=== PATIENT | female | born 1960 | race Caucasian/White ===

== ENCOUNTER 2018-04-19 12:27 | Observation (INO) ==
[2018-04-19 22:03] LABS: Creatine Kinase 46 U/L (26-192)
[2018-04-20 04:34] LABS: Creatine Kinase 42 U/L (26-192)
--- NOTE | 2018-04-20 09:59 | ECG ---
Date Performed: 04/20/2018 Time Performed: 03:26:28 PTAGE: 57 years EKG: Sinus rhythm NORMAL ECG PREVIOUS TRACING : 04/19/2018 21.33 DOCTOR: Matt Kat Interpretating Date/Time 04/20/2018 09:58:34
--- NOTE | 2018-04-20 10:08 | ECG ---
Date Performed: 04/19/2018 Time Performed: 21:33:54 PTAGE: 57 years EKG: Sinus rhythm NORMAL ECG NO PREVIOUS TRACING DOCTOR: Matt Kat Interpretating Date/Time 04/20/2018 10:06:33
--- NOTE | 2018-04-20 10:37 | P.HP ---
History of Present Illness Primary Care Physician: UNKNOWN Chief Complaint: Patient told to go to the ER because of atrial fibrillation History of Present Illness: 57-year-old female with known history of hypothyroidism, gastric reflux who presented to the hospital at the request of urgent care because of fast heart rate and atrial fibrillation. Patient indicates that over the weekend she started developing what she felt palpitations where she felt her heart beating really fast. This happening infrequently and would go away on its own. She indicates that on Thursday night she had a red bull and vodka drink and then on Thursday she started noticing palpating more than it was. Then on Thursday she states that it started pounding so hard that felt like he was going to beat out of her chest and she can feel it down in her left flank. Because of that she went to an urgent care and she had an EKG done which showed her heart rate in the 150s with a rhythm of atrial fibrillation. She was told to go to the emergency department by the urgent care center. Patient went to the ER in [place]. During that visit she was evaluated by ER physician and she was in normal sinus rhythm. Is recommended by the ER physician that the patient be observed for further evaluation and management. Patient denies any chest pain, shortness of breath, dyspnea, nausea, vomiting, diaphoresis, lightheadedness or dizziness. Patient has remained in sinus rhythm with rate controlled since being in placed in the hospital. Patient denies any new complaints and very eager to go home. - Diagnosis (1) New onset atrial fibrillation Review of Systems All other systems reviewed negative except as stated in HPI Cardiovascular: Reports rapid, pounding, or irregular heartbeat [facility] - History History Provided By: Patient - Medical History Medical History: Medical History (Last Reviewed 04/20/18 @ 10:39 by STELLA Mayo) Hypothyroidism Ulcer - Surgical History Surgical History: Surgical History (Last Reviewed 04/20/18 @ 10:39 by STELLA Mayo) History of endometrial ablation Hx of tonsillectomy - Family History Family History: Family History (Last Updated 04/20/18 @ 10:21 by STELLA Mayo) Father History of heart disease - Tobacco History Second Hand Smoke Exposure: No Smoking Status: Never smoker - Alcohol History How Often Do You Have a Drink Containing Alcohol: 2 to 3 times a week - Substance Use History Substance History: No History of Abuse Medications and Allergies Active Medications: Active Medications Ondansetron HCl (Zofran Inj) 4 mg IV.PUSH Q6H PRN PRN Reason: NAUSEA OR VOMITING Allergies Allergy/AdvReac Type Severity Reaction Status Date / Time Sulfa (Sulfonamide Allergy Severe Anaphylaxis Verified 04/19/18 12:41 Antibiotics) Home Medications Medication Instructions Recorded Confirmed Type cholecalciferol (vitamin D3) 4,000 unit PO DAILY 04/19/18 04/20/18 History [Vitamin D3] levothyroxine 125 mcg PO DAILY 04/19/18 04/20/18 History omeprazole 20 mg PO DAILY 04/19/18 04/20/18 History Exam Vital signs: Vital Signs 04/19/18 20:00 04/20/18 00:09 04/20/18 04:02 Temperature 97.9 F 97.5 F L 97.4 F L Pulse Rate 87 87 81 Respiratory Rate 18 18 18 Blood Pressure 128/84 116/67 119/74 Pulse Oximetry 96 96 04/20/18 08:00 04/20/18 09:13 Temperature 96.8 F L Pulse Rate 88 83 Respiratory Rate 16 Blood Pressure 125/80 Pulse Oximetry 95 Intake & Output 04/19/18 04/20/18 04/20/18 18:59 06:59 18:59 Intake Total 365 / 365 Balance 365 / 365 Weight 88 kg Intake: Oral 365 / 365 Other: # Voids 2 Narrative: GENERAL: Well-developed, well-nourished, in no acute distress. alert and orientated HEENT: Head is normocephalic without any lesions or masses noted. Facial features are symmetric. Eyes: Pupils equal round reactive to light. Extraocular muscles are intact. Conjunctivae were clear. Oropharyngeal: Pharynx without any erythema edema. Tongue is midline without deviation. Buccal mucosa is moist without any masses or lesions NECK: Supple without any masses. Trachea midline no deviation. No JVD, no bruits are appreciated CARDIAC: Regular rhythm, regular rate. S1/S2 are heard. No murmurs gallops or rubs. LUNGS: Clear to auscultation bilaterally. No wheeze, rhonchi or rales. No use of accessory muscles on inspiration or expiration. ABDOMEN: Soft, nontender. Nondistended. Bowel sounds heard in all 4 quadrants. No organomegaly or masses. Negative rebound, negative guarding EXTREMITIES: No edema, pulses are equal bilaterally. No cyanosis or clubbing NEUROLOGY: Mood and affect appear appropriate. Cranial nerves II through XII grossly intact. Muscle strength 5/5 in upper and lower extremities bilaterally. Deep tendon reflexes are 2+ in upper and lower extremities bilaterally. Results - Labs Labs: Laboratory Results - last 24 hr 04/19/18 04/20/18 21:35 04:00 Total Creatine Kinase 46 42 Troponin I Less than 0.02 L Less than 0.02 L Caprini VTE Risk Assessment Caprini VTE Risk Assessment: Moderate/High Risk (score >= 2) Caprini Risk Assessment Model: Point Value = 1 Point Value = 2 Point Value = 3 Point Value = 5 Age 41-60 Minor surgery BMI > 25 kg/m2 Swollen legs Varicose veins or History of unexplained or recurrent spontaneous Oral contraceptives or hormone replacement Sepsis (< 1 month) Serious lung disease, including pneumonia (< 1 month) Abnormal pulmonary function Acute myocardial infarction Congestive heart failure (< 1 month) History of inflammatory bowel disease Medical patient at bed rest Age 61-74 Arthroscopic surgery Major open surgery (> 45 min) Laparoscopic surgery (> 45 min) Malignancy Confined to bed (> 72 hours) Immobilizing plaster cast Central venous access Age >= 75 History of VTE Family history of VTE Factor V Leiden Prothrombin [id number] Lupus anticoagulant Anticardiolipin antibodies Elevated serum homocysteine Heparin-induced thrombocytopenia Other congenital or acquired thrombophilia Stroke (< 1 month) Elective arthroplasty Hip, pelvis, or leg fracture Acute spinal cord injury (< 1 month) Prophylaxis Regimen: Total Risk Factor Score Risk Level Prophylaxis Regimen 0-1 Low Early ambulation 2 Moderate Order ONE of the following: *Sequential Compression Device (SCD) *Heparin 5000 units SQ BID 3-4 Higher Order ONE of the following medications: *Heparin 5000 units SQ TID *Enoxaparin/Lovenox 40 mg SQ daily (WT < 150 kg, CrCl > 30 mL/min) *Enoxaparin/Lovenox 30 mg SQ daily (WT < 150 kg, CrCl > 10-29 mL/min) *Enoxaparin/Lovenox 30 mg SQ BID (WT < 150 kg, CrCl > 30 mL/min) AND/OR *Sequential Compression Device (SCD) 5 or more Highest Order ONE of the following medications: *Heparin 5000 units SQ TID (Preferred with Epidurals) *Enoxaparin/Lovenox 40 mg SQ daily (WT < 150 kg, CrCl > 30 mL/min) *Enoxaparin/Lovenox 30 mg SQ daily (WT < 150 kg, CrCl > 10-29 mL/min) *Enoxaparin/Lovenox 30 mg SQ BID (WT < 150 kg, CrCl > 30 mL/min) AND *Sequential Compression Device (SCD) Assessment and Plan - Assessment (1) New onset atrial fibrillation Code(s): I48.91 - Unspecified atrial fibrillation Status: Acute - Plan Paroxysmal atrial fibrillation, new onset -Heart rate is controlled and sinus rhythm at this time -Chads2 score is 0, start daily aspirin -Serial cardiac enzymes were performed which all remained negative -Serial EKGs were performed apparently the first EKG performed indicated a inverted T-wave in lead III, however remaining EKGs show normal T waves -Echocardiogram indicated normal ejection fraction 55-60%, trace of tricuspid valve regurg. Normal left ventricular size and function -TSH was normal 2.81 -Telemetry was reviewed and no signs of any recurrent atrial fibrillation during hospitalization -Consult cardiology for evaluation of new onset paroxysmal atrial fibrillation. He recommended aspirin for anticoagulation. Recommended follow-up with patternmaker hand. Patient was cleared for discharge Hypothyroidism -Continue replacement therapy -Obtaining TSH DVT prevention -Sequential compression devices Discharge Planning: Discharge home in stable condition once cleared by cardiology Activity: Ad [place]. Diet: Healthy heart diet Medication per medication reconciliation Follow-up with primary medical doctor in 1 week
[2018-04-20] MEDS ORDERED: Pantoprazole Sodium 20 MG DR Tablet PO SCH (11:15)
[2018-04-20] MEDS ORDERED: Levothyroxine 125 MCG Tablet PO SCH (11:15)
--- NOTE | 2018-04-20 22:30 | MB ---
cc: Manuel Flores MD DATE: 04/20/2018 HISTORY OF PRESENT ILLNESS: Karen is a very pleasant 57-year-old lady with no significant past medical history, developed palpitations after drinking vodka and Red Bull. Otherwise, denies any chest pain, fever, chills, cough, GI or bleeding, PND, orthopnea, super dizziness. She is reported to have had AFib with rates in the 150s. There is no documentation of this by EKG or rhythm strip, however, reportedly the EKG in the ER in [place] showed normal sinus rhythm. EKGs here at [facility] showed normal sinus rhythm. The patient is currently comfortable, in no acute distress. PAST MEDICAL HISTORY: Includes hypothyroidism and ulcer disease, endometrial ablation, tonsillectomy. SOCIAL HISTORY: Denies tobacco use. Does drink alcohol 2-3 times a week. CURRENT MEDICATIONS: Aspirin 325 daily, levothyroxine 125 mcg daily, pantoprazole 20 mg daily. ALLERGIES: SULFA. PHYSICAL EXAMINATION: VITAL SIGNS: Temperature 97.2, pulse 81, respiratory rate 20, blood pressure 129/96, blood pressures ranging between 123-132 systolic and 74-96 diastolic, sats are 97% on room air. GENERAL: She is alert and oriented x 3, in no acute distress. NECK: Supple. No JVD. No bruit. CARDIOVASCULAR: S1, S2. No murmurs, rubs or gallops. LUNGS: Clear to auscultation bilaterally. ABDOMEN: Soft, nontender, nondistended, with positive bowel sounds. EXTREMITIES: No lower extremity edema. LABORATORY DATA: Troponin is less than 0.02 x 2. CK is 46 and 42. TSH is 2.810. White count is 5.2, hemoglobin 14.7, hematocrit 42.1, platelet count 264. INR is 1.0. Sodium 140, potassium 4.2, chloride 107, bicarbonate 26.0, BUN 15, creatinine 0.80. TSH is 2.810. EKG x 2 shows normal sinus rhythm and is within normal limits, with normal intervals. DIAGNOSES: 1. Paroxysmal atrial fibrillation. 2. Hypothyroidism. DISCUSSION: The patient's CHADS-VASc score is 0. I agree with Dr. Merritt that aspirin is indicated. I told her to abstain from alcohol and stimulants such as Red Bull caffeine. The patient understands and says she will avoid Red Bull in the future or drinks similar to that. I told her to also be cautious about fluid and electrolyte loss during peak months of high heat and humidity. I have also told her and her to followup with a shaft headman as soon as possible. I told her that I would be happy to see her in my office in [facility], however, she lives in [place]. She understands and agrees that she will followup with a shaft headman as soon as possible. I will also review her echocardiogram. MD JORGE Colby/YAMILET , 10:06 PM , 10:28 PM
--- NOTE | 2018-04-20 23:12 | ECHRPT ---
Indication: ATRIAL FIB/FLUTTER CONCLUSIONS Normal left ventricular size. Mild concentric left ventricular hypertrophy. The left ventricular systolic function is normal with an estimated ejection fraction in the range of 55-60%. There is trace tricuspid valve regurgitation. . BP: / HR: Rhythm: Sinus MEASUREMENTS (Male / Female) Normal Values Technical Quality:Fair 2D ECHO LV Diastolic Diameter PLAX 3.9 cm 4.2 - 5.9 / 3.9 - 5.3 cm LV Systolic Diameter PLAX 3.0 cm IVS Diastolic Thickness 1.2 cm 0.6 - 1.0 / 0.6 - 0.9 cm LVPW Diastolic Thickness 1.2 cm 0.6 - 1.0 / 0.6 - 0.9 cm LV Relative Wall Thickness 0.6 RV Internal Dim ED PLAX 2.1 cm LVOT Diameter 2.1 cm Aortic Root Diameter 2.6 cm LA Systolic Diameter LX 2.3 cm 3.0 - 4.0 / 2.7 - 3.8 cm M-MODE AV Cusp Separation MM 1.8 cm DOPPLER AV Peak Velocity 102.0 cm/s AV Peak Gradient 4.2 mmHg AV Mean Gradient 3.0 mmHg AV Velocity Time Integral 16.4 cm LVOT Peak Velocity 56.4 cm/s LVOT Peak Gradient 1.3 mmHg LVOT Velocity Time Integral 9.6 cm AV Area Cont Eq vti 2.0 cm AV Area Cont Eq pk 1.9 cm Mitral E Point Velocity 50.8 cm/s Mitral A Point Velocity 60.2 cm/s Mitral E to A Ratio 0.8 LV E' Lateral Velocity 3.0 cm/s Mitral E to LV E' Lateral Ratio 16.8 LV E' Septal Velocity 3.4 cm/s Mitral E to LV E' Septal Ratio 14.9 PV Peak Velocity 60.9 cm/s PV Peak Gradient 1.5 mmHg FINDINGS LEFT VENTRICLE Normal left ventricular size. Mild concentric left ventricular hypertrophy. The left ventricular systolic function is normal with an estimated ejection fraction in the range of 55-60%. RIGHT VENTRICLE Normal right ventricular size and systolic function. LEFT ATRIUM The left atrial size is normal. RIGHT ATRIUM The right atrial size is normal. ATRIAL SEPTUM No atrial level shunt is demonstrated by color flow Doppler interrogation. AORTA The aortic root and proximal ascending aorta are normal in size on limited imaging. MITRAL VALVE Structurally normal mitral valve. No mitral valve stenosis or regurgitation. AORTIC VALVE No aortic valve stenosis or regurgitation. TRICUSPID VALVE There is trace tricuspid valve regurgitation. . PULMONARY VALVE No pulmonary valve regurgitation or stenosis. VESSELS The inferior vena cava is normal in size. PERICARDIUM No pericardial effusion. Manuel Flores MD, FACC, [facility] [place] (Electronically Signed) Final Date:20 April 2018 23:11
== END 2018-04-20 22:05 | disposition home or self-care (01) ==
LOC: PHEDDLT 19:00 → PH3 19:00 → INTOOBSV 19:01
PROVIDERS: ADMIT Family Medicine; ATTEND Family Medicine